=== PATIENT | female | born 1995 | race Caucasian/White ===

== ENCOUNTER 2022-05-21 16:08 | Inpatient (IN) ==
[2022-05-21] MEDS ORDERED: METHYLERGONOVINE 0.2 MG/1 ML AMP IM PRN (16:34)
[2022-05-21] MEDS ORDERED: ONDANSETRON 4 MG/2 ML VIAL IV PRN ×2 (16:34→21:25)
[2022-05-21] MEDS ORDERED: TRANEXAMIC ACID 1,000 MG in SODIUM CHLORIDE 0.9% 100 ML IV PRN (16:34)
[2022-05-21] MEDS ORDERED: miSOPROStoL 200 MCG TABLET RECTAL PRN (16:34)
[2022-05-21] MEDS ORDERED: CARBOPROST TROMETHAMINE 250 MCG/ML AMP IM PRN (16:34)
[2022-05-21 16:53] LABS: Basophils % 0.1 % (0.0-0.8); Eosinophils # 0.1 10*3/uL (0.0-0.87); Eosinophils % 1.3 % (0.00-10.9); Hematocrit 36.7 VOL% (35.7-47.0); Hemoglobin 12.1 GM/DL (12.0-16.0); Immature Granulocytes % 0.4 %; Immature Granulocytes Absolute 0.03 #; Lymphocytes # 1.4 10*3/uL (1.4-4.0); Lymphocytes % 18.4 % (21.3-54.2); Mean Corpuscular Volume 90.4 FL (87-102); Mean Platelet Volume 9.3 FL (9.6-12.0); Monocytes # 0.4 10*3/uL (0.11-0.8); Monocytes % 4.8 % (1.7-12.7); Platelet Count 244 T/CUMM (130-400); Red Blood Count 4.06 MC/CUMM (3.8-5.5); Red Cell Distribution Width 13.4 % (9.3-17.3); White Blood Count 7.5 T/CUMM (4-12)
[2022-05-21] MEDS ORDERED: OXYTOCIN/LR 20 UNIT/1,000 ML BAG IV ONE ×3 (17:00→21:25)
[2022-05-21] MEDS ORDERED: LACTATED RINGERS 1,000 ML IV ONE (17:00)
[2022-05-21] MEDS ORDERED: FAMOTIDINE 20 MG/2 ML VIAL IV ONE (17:06)
[2022-05-21] MEDS ORDERED: CITRIC ACID/SODIUM CITRATE 30 ML UDCUP PO ONE (17:06)
[2022-05-21] MEDS ORDERED: hydrOXYzine HCL 25 MG/1 ML VIAL IM PRN (17:06)
[2022-05-21] MEDS ORDERED: diphenhydrAMINE 50 MG/1 ML VIAL IV PRN ×2 (17:06)
[2022-05-21] MEDS ORDERED: NALOXONE 0.4 MG/ML VIAL IV PRN (17:06)
[2022-05-21] MEDS: LACTATED RINGERS 1,000 ML IV SCH ×2 (17:14→19:20)
[2022-05-21] MEDS ORDERED: ONDANSETRON 4 MG/2 ML VIAL IV ONE (17:30)
[2022-05-21] MEDS ORDERED: PROMETHAZINE 25 MG/1 ML VIAL IM ONE (17:30)
[2022-05-21] MEDS ORDERED: fentaNYL 2 MCG/ROPIV 0.2% EPID 100 ML EPIDURAL SCH (17:30)
[2022-05-21] MEDS ORDERED: OXYTOCIN/LR 20 UNIT/1,000 ML BAG IV SCH (17:30)
[2022-05-21] MEDS ORDERED: AMPICILLIN INJ 2,000 MG in SODIUM CHLORIDE 0.9% 100 ML IV ONE (17:30)
[2022-05-21] MEDS: ePHEDrine 50 MG/ML VIAL IV PRN ×2 (18:50→19:08)
[2022-05-21] MEDS ORDERED: TRANEXAMIC ACID 1,000 MG/10 ML VIAL ONE (20:44)
[2022-05-21] MEDS ORDERED: miSOPROStoL 200 MCG TABLET ONE (20:44)
[2022-05-21] MEDS ORDERED: SODIUM CHLORIDE 0.9% 0 ML IV ONE (20:44)
[2022-05-21] MEDS ORDERED: METHYLERGONOVINE 0.2 MG/1 ML AMP ONE (20:45)
[2022-05-21] MEDS ORDERED: CARBOPROST TROMETHAMINE 250 MCG/ML AMP IM ONE (20:45)
[2022-05-21] MEDS ORDERED: AMPICILLIN INJ 1,000 MG in SODIUM CHLORIDE 0.9% 100 ML IV SCH (21:00)
[2022-05-21] MEDS ORDERED: HYDROCORTISONE 2.5% RECTAL CREAM 30 GM TUBE TOP PRN (21:25)
[2022-05-21] MEDS ORDERED: DIPH/TET/ACEL PERT BOOSTER VACCINE 0.5 ML VIAL IM ONE (21:25)
[2022-05-21] MEDS ORDERED: ACETAMINOPHEN 325 MG TABLET PO PRN (21:25)
[2022-05-21] MEDS ORDERED: MEASLES/MUMPS/RUBELLA VACCINE 0.5 ML VIAL SUBCUT ONE (21:25)
[2022-05-21] MEDS ORDERED: RHO(D) IMMUNE GLOBULIN 300 MCG SYRINGE IM ONE (21:25)
[2022-05-21] MEDS ORDERED: oxyCODONE/ACETAMINOPHEN 5-325 MG TABLET PO PRN ×2 (21:25)
[2022-05-21] MEDS ORDERED: BISACODYL 10 MG SUPP RECTAL PRN (21:25)
[2022-05-21] MEDS ORDERED: WITCH HAZEL PADS 100/JAR TOP PRN (21:25)
[2022-05-21] MEDS ORDERED: BENZOCAINE 20%/MENTHOL 0.5% SPRAY 56 GM CAN TOP PRN (21:25)
[2022-05-21] MEDS ORDERED: LANOLIN 50% CREAM 0.3 OZ TUBE TOP PRN (21:25)
[2022-05-21 21:30] LABS: Cord Venous Blood HCO3 18.4 MMOL/L; Cord Venous Blood PCO2 59.4 MMHG; Cord Venous Blood PO2 28.5
[2022-05-21 21:34] LABS: Cord Arterial Blood HCO3 14.8 MMOL/L
[2022-05-22] MEDS: IBUPROFEN 800 MG TABLET PO PRN ×3 (03:15→16:40)
[2022-05-22 03:36] LABS: Basophils % 0.2 % (0.0-0.8); Eosinophils # 0.1 10*3/uL (0.0-0.87); Eosinophils % 0.5 % (0.00-10.9); Hematocrit 31.4 VOL% (35.7-47.0); Hemoglobin 10.4 GM/DL (12.0-16.0); Immature Granulocytes % 0.5 %; Immature Granulocytes Absolute 0.05 #; Lymphocytes # 1.5 10*3/uL (1.4-4.0); Lymphocytes % 14.9 % (21.3-54.2); Mean Corpuscular HGB Conc 33.1 GM/DL (32-36); Mean Corpuscular Volume 89.7 FL (87-102); Mean Platelet Volume 9.6 FL (9.6-12.0); Monocytes # 0.6 10*3/uL (0.11-0.8); Monocytes % 6.1 % (1.7-12.7); Neutrophils % 77.8 % (38.7-73.9); Platelet Count 200 T/CUMM (130-400); Red Cell Distribution Width 13.4 % (9.3-17.3); White Blood Count 10.2 T/CUMM (4-12)
[2022-05-22] MEDS: MULTIVITAMIN (PRENATAL) TABLET PO SCH (08:44)
[2022-05-22] MEDS: DOCUSATE SODIUM 100 MG CAPSULE PO SCH ×2 (08:44→20:33)
[2022-05-23] MEDS: MULTIVITAMIN (PRENATAL) TABLET PO SCH (08:13)
[2022-05-23] MEDS: DOCUSATE SODIUM 100 MG CAPSULE PO SCH (08:13)
[2022-05-23] MEDS: IBUPROFEN 800 MG TABLET PO PRN (08:14)
[2022-05-23 08:31] VITALS: BP 109/74
== END 2022-05-23 11:30 | disposition home or self-care (01) | DRG 807 ==
LOC: N.LDOUT 16:08 → N.LD 16:10 → N.OB 23:35
PROVIDERS: ADMIT Student in an Organized Health Care Education/Training Program; ATTEND Student in an Organized Health Care Education/Training Program